=== PATIENT | female | born 1990 | race Caucasian/White ===

== ENCOUNTER 2017-06-16 11:34 | Emergency (ER) | payer OTHER ==
[2017-06-16] MEDS ORDERED: NORMAL SALINE 1000 ML 1,000 ML IV ONE (11:50)
--- NOTE | 2017-06-16 12:22 | EKG REPORT ---
SEVERITY:- ABNORMAL ECG - ATRIAL FIBRILLATION : Confirmed by: Chica Valenzuela MD 16-Jun-2017 12:22:03
[2017-06-16 12:45] LABS: ABSOLUTE EOSINOPHILS # (AUTO) 0.1 10^3/uL (0.0-0.6); ABSOLUTE LYMPHOCYTES (AUTO) 2.2 10^3/uL (0.5-4.7); ABSOLUTE MONOCYTES (AUTO) 0.5 10^3/uL (0.1-1.4); ABSOLUTE NEUT (AUTO) 4.3 10^3/uL (1.7-8.2); BASOPHILS % (AUTO) 0.3 % (0-2); EOSINOPHILS % (AUTO) 1.2 % (0-6); HEMOGLOBIN 13.6 g/dL (12.0-15.5); HGB HCT DIFFERENCE 0.8; LYMPHOCYTES % (AUTO) 30.5 % (13-45); MEAN CORPUSCULAR VOLUME 88 fl (80-97); MONOCYTES % (AUTO) 6.9 % (3-13); RED BLOOD COUNT 4.54 10^6/uL (3.72-5.28); RED CELL DISTRIBUTION WIDTH 12.7 % (11.5-14.0); SEGMENTED NEUTROPHILS % (AUTO) 61.1 % (42-78); WHITE BLOOD COUNT 7.1 10^3/uL (4.0-10.5)
[2017-06-16 12:58] LABS: ALANINE AMINOTRANSFERASE 24 U/L (9-52); ALBUMIN 4.4 g/dL (3.5-5.0); ALKALINE PHOSPHATASE 81 U/L (38-126); ANION GAP 12 (5-19); ASPARTATE AMINO TRANSFERASE 14 U/L (14-36); BILIRUBIN,DIRECT 0.3 mg/dL (0.0-0.4); BILIRUBIN,TOTAL 1.2 mg/dL (0.2-1.3); BLOOD UREA NITROGEN 17 mg/dL (7-20); CALCIUM 9.6 mg/dL (8.4-10.2); CARBON DIOXIDE 24 mmol/L (22-30); CHLORIDE 105 mmol/L (98-107); CREATINE KINASE 56 U/L (30-135); CREATININE RESULT 0.76 mg/dL (0.52-1.25); GLUCOSE 96 mg/dL (75-110); SODIUM 140.5 mmol/L (137-145); TOTAL PROTEIN 7.4 g/dL (6.3-8.2)
[2017-06-16 13:10] LABS: CREATINE KINASE MB 0.22 ng/mL (<4.55)
[2017-06-16 13:11] LABS: TROPONIN I < 0.012 ng/mL
--- NOTE | 2017-06-16 13:40 | ER Document Report ---
ED Syncope and Near Syncope - General Chief Complaint: Near Syncope Stated Complaint: PASSED OUT Time Seen by Provider: 06/16/17 11:38 Mode of Arrival: Medic Information source: Patient Notes: Patient is a 27-year-old female who presents to the ER today for syncopal episode while practicing blood draws at phlebotomy class today. Patient states that they were trying to get a vein in her right hand and that they "Digging and missing." She states that she started to get lightheaded and told them she needed to lay back, and when the next thing she knew they were trying to get her to respond. Bystanders state that they think she bit her tongue and that she urinated on herself. Patient does admit to urinating on herself which she realized when she woke up. Patient has had syncopal episodes before and has had a workup for this but never was diagnosed with anything except for syncopal episodes. She has been seen by cardiology, this was over 6 years ago including a tilt table test that was only positive for lowering her blood pressure. Patient feels fine at this time. She is at her baseline mentally. - Related Data Allergies/Adverse Reactions: No Known Allergies Allergy (Verified 06/16/17 11:58) Past Medical History - General Information source: Patient - Social History Smoking Status: Never Smoker Chew tobacco use (# tins/day): No Frequency of alcohol use: Occasional Drug Abuse: None Family History: Reviewed & Not Pertinent Review of Systems - Review of Systems Constitutional: No symptoms reported EENT: No symptoms reported Cardiovascular: No symptoms reported Respiratory: No symptoms reported Gastrointestinal: No symptoms reported Genitourinary: No symptoms reported Female Genitourinary: No symptoms reported Musculoskeletal: No symptoms reported Skin: No symptoms reported Hematologic/Lymphatic: No symptoms reported Neurological/Psychological: See HPI Physical Exam - Vital signs Vitals: Pulse Ox 100 06/16/17 11:38 - Notes Notes: PHYSICAL EXAMINATION: GENERAL: Well-appearing and in no acute distress. HEAD: Atraumatic, normocephalic. EYES: Pupils equal round and reactive to light, extraocular movements intact, sclera anicteric, conjunctiva are normal. ENT: ear canals without erythema or foreign body, TMs pearly sung with good bony landmarks, nares patent, oropharynx clear without exudates. Moist mucous membranes. No tongue laceration, no Abrasions NECK: Normal range of motion, supple without lymphadenopathy LUNGS: CTAB and equal. No wheezes rales or rhonchi. HEART: Regular rate and rhythm without murmurs ABDOMEN: Soft, no tenderness. No guarding, no rebound BACK: no vertebral tenderness, normal ROM GI/: no CVA tenderness EXTREMITIES: Normal range of motion, no pitting edema. No cyanosis. NEUROLOGICAL: Cranial nerves grossly intact. Normal sensory/motor exams. Good and equal strength bilaterally, Kernig and Brudzinski's signs negative, Romberg' s test normal, normal heel to vicente testing PSYCH: Normal mood, normal affect. SKIN: Warm, Dry, normal turgor, no rashes or lesions noted Course - Re-evaluation Re-evalutation: 06/16/17 13:39 Lab work is unremarkable today, patient is at her baseline mentally and neurologically. She is stable for discharge. I believe she had a vasovagal episode. - Vital Signs Vital signs: Temp Pulse Resp BP Pulse Ox 97.6 F 18 108/56 L 100 06/16/17 12:35 06/16/17 14:01 06/16/17 14:01 06/16/17 14:01 - Laboratory Result Diagrams: 06/16/17 11:35 06/16/17 11:35 Discharge - Discharge Clinical Impression: Vasovagal syncope Condition: Stable Disposition: HOME, SELF-CARE Additional Instructions: Return immediately for any new or worsening symptoms. Follow up with primary care provider, call tomorrow to make followup appointment.
[2017-06-16 14:21] VITALS: BP 108/56
== END 2017-06-16 14:05 | disposition home or self-care (01) ==
LOC: ER 11:34
DX: R55 Syncope and collapse (principal); R32 Unspecified urinary incontinence
CPT/HCPCS: 93005; 99284; 96360; 36415; 82553; 82550; 84703; 85025; 80053; 84484; 93010; J7030